=== PATIENT | male | born 1960 | race Caucasian/White ===

== ENCOUNTER → 2021-01-10 | Outpatient (CLI) | payer OTHER ==
[~2021-01-10] MED LIST: ATIVAN1 MG PO; ATORVASTATIN CA40 MG; CARAFATE1 GM/10 ML PO; CEFTIN 250 MG250 MG PO; NITROGLYCERIN0.4 MG SUBLING; NORVASC5 MG; PLAVIX 75 MG TA75 M1; PROAIR HFA8.5 GM INH; PROMETHAZINE/C118 ML PO; PROTONIX40 M1 PO
== END ==
LOC: SJCVC 10:54
PROVIDERS: ATTEND Internal Medicine Cardiovascular Disease
DX: I10 Essential (primary) hypertension (principal); I25.10 Atherosclerotic heart disease of native coronary artery without angina pectoris; I73.9 Peripheral vascular disease, unspecified; E78.00 Pure hypercholesterolemia, unspecified; E78.5 Hyperlipidemia, unspecified; F17.220 Nicotine dependence, chewing tobacco, uncomplicated; Z79.82 Long term (current) use of aspirin; Z79.899 Other long term (current) drug therapy; Z72.89 Other problems related to lifestyle

== ENCOUNTER → 2021-03-08 | Outpatient (CLI) | payer OTHER | LOC: SJCVCIMAG 07:45 | PROVIDERS: ATTEND Internal Medicine Cardiovascular Disease | DX: R00.0 Tachycardia, unspecified (principal); R06.00 Dyspnea, unspecified; T82.856A Stenosis of peripheral vascular stent, initial encounter; I73.9 Peripheral vascular disease, unspecified; I10 Essential (primary) hypertension; E78.00 Pure hypercholesterolemia, unspecified; F10.10 Alcohol abuse, uncomplicated; I25.10 Atherosclerotic heart disease of native coronary artery without angina pectoris; E78.5 Hyperlipidemia, unspecified; Z95.820 Peripheral vascular angioplasty status with implants and grafts; Z95.5 Presence of coronary angioplasty implant and graft; Z88.8 Allergy status to other drugs, medicaments and biological substances; Z79.82 Long term (current) use of aspirin; Z79.899 Other long term (current) drug therapy; Z87.891 Personal history of nicotine dependence; Z82.49 Family history of ischemic heart disease and other diseases of the circulatory system; Y83.8 Other surgical procedures as the cause of abnormal reaction of the patient, or of later complication, without mention of misadventure at the time of the procedure; Y92.89 Other specified places as the place of occurrence of the external cause ==

== ENCOUNTER → 2021-03-21 | Outpatient (CLI) | payer OTHER ==
[~2021-03-21] VITALS: Ht 172.7 cm; Wt 79.5 kg
[~2021-03-21] MED LIST changes: +ALPRAZOLAM XR3 MG PO; +ASA81BEC PO; +CRESTOR40 MG PO; +FISH OIL 1,0001 EAC9 PO; +NITROSTAT0.4 M1 SUBLING; +PLAVIX 75 MG TA75 MG PO
[2021-03-21 10:13] VITALS: BP 113/67
[2021-03-21 11:14] LABS: HEMATOCRIT 43.8 % (42.0-52.0); HEMOGLOBIN 14.5 gm/dL (14.0-18.0); MCH 32.8 pg (26.0-34.0); MCV 99.5 fL (80.0-100.0); RBC 4.41 mil/uL (4.50-6.00); RDW 14.1 % (10.5-14.5)
[2021-03-21 11:30] LABS: CALCIUM 9.3 mg/dL (8.5-10.1); POTASSIUM 4.1 mmol/L (3.5-5.1)
--- NOTE | 2021-03-21 13:02 | CATHLAB ---
[facility] [place] [address] INVASIVE PROCEDURE REPORT Name: NAVA ANGEL Sheri Room #: REG RIZWAN MengMeng#: [id number] Admission: 03/21/21 Attend Phys: Carson Benoit MD Discharge: Date of : 56 Report #: [id number] THIS REPORT FOR: cc: Jeffrey Dumont MD, Neal A. MD Park, Jin S. MD ~ APPROVED REPORT Study performed: 03/21/2021 10:17:18 Patient Details Patient Status: Out-Patient Room #: The patient is a 60 year-old male Event Personnel Carson Benoit Car Deliverer, Jordan Lincoln RN RN, Carmelita Alford RN RN, Marlene Henry RTR, KAYLAH Scrub, Simin Gonsales RTR Scrub, Daniella Gómez Monitor Procedures Performed Art Access - R femoral artery* Left Heart Cath w/or w/o Coronaries [id number] [facility] [id number] Initial Mod Sed Same Phys/QHP Gr5y [id number] Mod Sed Same Phys/QHP Ea 656226 Hemostasis with Manual pressure Indication Dyspnea, Positive stress test Risk Factors Peripheral Vascular Disease, Hypercholesterolemia, Coronary Artery DiseaseHypertension Previous Procedures/Diagnoses Previous PCI, Previous Femoral Procedure Procedure Narrative The Right Groin^ was infiltrated with 1% Lidocaine subcutaneous anesthesia. A PINNACLE 4FR Sheath #[id number] sheath was inserted into the RFA^. Coronary angiography was performed using coronary diagnostic catheters. The right coronary system was accessed and visualized with a JR4 catheter. The left coronary system was accessed and visualized with a JL4 catheter. The left ventricle was accessed and visualized with a ANGLE PIG catheter. Hemostasis was obtained with manual pressure following sheath removal without any [facility] [address] [address] INVASIVE PROCEDURE REPORT Name: NAVA ANGEL Room #: [facility]#: [id number] Admission: 03/21/21 Attend Phys: Carson Benoit MD Discharge: Date of : 56 Report #: [id number] complications. Intraoperative Conscious Sedation Sedation start time: 1157 Case end Time: 1235 Fentanyl 100 mcg Versed 2 mg Fluoro Time: 1.60 minutes Dose: DAP 5156.00 cGycm2 755 mGy Contrast Type and Amount: Omnipaque 45 ml Coronary Angiography The patient's coronary anatomy is right dominant. Diagnostic Cath Left Main The left main artery is a large-caliber vessel, appears angiographically normal. LAD This is a moderate-sized caliber vessel, traverses the anterior wall and wraps around the apex. The proximal segment has moderate calcifications with mild to moderate diffuse disease, 40%. The mid and distal segments have no flow-limiting lesions. Diagonal 1 This is a small caliber vessel, with no flow-limiting lesions. Circumflex Supplies 1 OM vessel. OM1 This is a moderate-sized caliber vessel with mild disease proximally. Right Coronary The RCA is dominant vessel with previous stents. There is a total occlusion in the proximal stent. The distal branches are filled via collateral circulation from the left coronary artery. Ramus There is a ramus artery present that divides into 2 branches. These branches are of small to moderate-sized caliber with moderate proximal disease, 50%. Left Ventriculography Left Ventriculography was not performed. Ejection Fraction was >55% based off patient's Nuclear Cardiac Stress Test. An LVEDP was measured and there is no gradient across the outflow tract. Hemodynamics The aortic pressure is 140/68 mmHg with a mean of 43 mmHg. The left ventricular pressure is 139/12 mmHg with a mean of mmHg. The left ventricular end diastolic pressure is 29 mmHg. Conclusion [facility] [address] [place] [address] INVASIVE PROCEDURE REPORT Name: NAVA ANGEL Room #: [facility] [id number] Admission: 03/21/21 Attend Phys: Carson Benoit MD Discharge: Date of : 56 Report #: [id number] 1. There is a total occlusion in the RCA stents, the distal branches are adequately filled via collateral circulation from the left coronary artery. 2. There is mild to moderate diffuse disease in the proximal LAD. 3. There are intermediate lesions in the ramus artery branches, small to moderate-sized caliber vessels. 4. There is normal LV systolic function. 5. Recommend aggressive risk factor management. <ELECTRONICALLY SIGNED> By: Carson Benoit MD 03/21/21 1301 1301 1301 Carson Benoit MD /INF
--- NOTE | 2021-03-21 15:01 | EKG ---
[place] [address] [address] [address] [facility] [place] [address] ELECTROCARDIOGRAM REPORT Name: NAVA ANGEL Room #: REG [facility]#: [id number] Admission: 03/21/21 Attend Phys: Carson Benoit MD Discharge: Date of : 56 Report #: [id number] [facility] Test Date: 2021-03-21 Test Time: 11:36:57 Pat Name: NAVA ANGEL Department: Room: Gender: Manager Program Management: ENOC : 1960 Requested By: Carson Benoit Order Number: [id number] MD: Daniel George Measurements Intervals [place] Rate: 57 P: 57 MN: 168 QRS: -4 QRSD: 111 T: 17 QT: 454 QTc: 442 Interpretive Statements Sinus rhythm RSR' in V1 or V2, probably normal variant Compared to ECG 10/31/2015 19:51:22 RSR' in V1 or V2 now present Electronically Signed On 03-21-2021 15:00:58 CDT by Daniel George [email or web address] <ELECTRONICALLY SIGNED> By: Daniel George MD, [facility] 03/21/21 1500 D: [id number] Daniel George MD, FACC /EPI
== END | disposition home or self-care (01) ==
LOC: CATH 07:04
PROVIDERS: ATTEND Internal Medicine Cardiovascular Disease
DX: R94.39 Abnormal result of other cardiovascular function study (principal); I25.10 Atherosclerotic heart disease of native coronary artery without angina pectoris; T82.855A Stenosis of coronary artery stent, initial encounter; R06.00 Dyspnea, unspecified; I10 Essential (primary) hypertension; E78.00 Pure hypercholesterolemia, unspecified; I73.9 Peripheral vascular disease, unspecified; J44.9 Chronic obstructive pulmonary disease, unspecified; Z98.890 Other specified postprocedural states; Z79.899 Other long term (current) drug therapy; Z87.891 Personal history of nicotine dependence

== ENCOUNTER → 2021-04-11 | Outpatient (CLI) | payer OTHER | LOC: SJCVC 13:16 | PROVIDERS: ATTEND Internal Medicine Cardiovascular Disease | DX: I49.8 Other specified cardiac arrhythmias (principal); I25.10 Atherosclerotic heart disease of native coronary artery without angina pectoris; I10 Essential (primary) hypertension; E78.00 Pure hypercholesterolemia, unspecified; I73.9 Peripheral vascular disease, unspecified; E78.5 Hyperlipidemia, unspecified; Z79.899 Other long term (current) drug therapy; Z87.891 Personal history of nicotine dependence; Z72.89 Other problems related to lifestyle ==